=== PATIENT | female | born 1970 | race Caucasian/White ===

== ENCOUNTER 2020-10-18 22:39 | Emergency (ER) | payer BC, OTHER ==
[~2020-10-18 22:39] MED LIST: FLAGYL500 MG PO; NEURONTIN100 MG PO; NORCO 5-325 TA1 EACH PO
[2020-10-19 00:18] LABS: HEMOGLOBIN 14.5 gm/dl (12.3-15.3); RED BLOOD COUNT 4.68 M/UL (4.00-5.10); WHITE BLOOD COUNT 15.1 K/UL (4.5-11.0)
[2020-10-19 00:36] LABS: BUN/CREATININE RATIO 17 (0-10)
== END 2020-10-19 02:38 | disposition home or self-care (01) ==
LOC: ER1 22:39
PROVIDERS: Family Medicine
DX: R51.9 Headache, unspecified (principal); E11.65 Type 2 diabetes mellitus with hyperglycemia; D69.6 Thrombocytopenia, unspecified; F17.200 Nicotine dependence, unspecified, uncomplicated; R93.0 Abnormal findings on diagnostic imaging of skull and head, not elsewhere classified; Z90.49 Acquired absence of other specified parts of digestive tract; Z90.89 Acquired absence of other organs; Z86.16 Personal history of COVID-19
CPT/HCPCS: 70450; 80053; 85025; 93005; 96374; 96375; 99284; J1100; J1200; J1885; J2765; J7030

== ENCOUNTER → 2020-10-19 | Outpatient (CLI) | payer BC, OTHER ==
[2020-10-19 16:56] LABS: HEMOGLOBIN 14.9 gm/dl (12.3-15.3); RED BLOOD COUNT 4.81 M/UL (4.00-5.10); WHITE BLOOD COUNT 16.6 K/UL (4.5-11.0)
[2020-10-19 17:43] LABS: BUN/CREATININE RATIO 21 (0-10)
[2020-10-21 08:10] LABS: VITAMIN D, 25-HYDROXY 17.6 ng/mL (30.0-100.0)
[2020-10-22 15:11] LABS: THYROGLOBULIN ANTIBODY <1.0 IU/mL (0.0-0.9); THYROID PEROXIDASE (TPO) AB 17 IU/mL (0-34)
[2020-10-22 16:11] LABS: ATYPICAL PANCA <1:20 titer (Neg:<1:20); CYTOPLASMIC (C-ANCA) <1:20 titer (Neg:<1:20); PERINUCLEAR (P-ANCA) <1:20 titer (Neg:<1:20)
== END ==
LOC: LAB 14:14
PROVIDERS: Nurse Practitioner Family
DX: I77.6 Arteritis, unspecified (principal); G43.911 Migraine, unspecified, intractable, with status migrainosus; E78.5 Hyperlipidemia, unspecified; R53.83 Other fatigue; E55.9 Vitamin D deficiency, unspecified
CPT/HCPCS: 80053; 80061; 82607; 82746; 84443; 85027; 85652; 86038; 86140; 86256; 86376; 86800

== ENCOUNTER → 2020-10-26 | Outpatient (CLI) | payer BC, OTHER | LOC: EMI 10:30 | DX: I77.6 Arteritis, unspecified (principal); R90.89 Other abnormal findings on diagnostic imaging of central nervous system | CPT/HCPCS: 70544; 70551 ==

== ENCOUNTER 2021-07-04 21:23 | Emergency (ER) | payer BC ==
[2021-07-04 23:10] LABS: HEMOGLOBIN 15.8 gm/dl (12.3-15.3); RED BLOOD COUNT 5.28 M/UL (4.00-5.10); WHITE BLOOD COUNT 14.4 K/UL (4.5-11.0)
[2021-07-04 23:19] LABS: BUN/CREATININE RATIO 21 (0-10)
[2021-07-05] MEDS ORDERED: OMNICEF 300 MG300 MG PO (01:21)
== END 2021-07-05 01:40 | disposition home or self-care (01) ==
LOC: ER1 21:23
PROVIDERS: Physician Assistant
DX: R55 Syncope and collapse (principal); N39.0 Urinary tract infection, site not specified; S09.90XA Unspecified injury of head, initial encounter; E11.9 Type 2 diabetes mellitus without complications; F17.200 Nicotine dependence, unspecified, uncomplicated; E78.5 Hyperlipidemia, unspecified; Z86.16 Personal history of COVID-19; Z88.1 Allergy status to other antibiotic agents; Z88.5 Allergy status to narcotic agent; W01.10XA Fall on same level from slipping, tripping and stumbling with subsequent striking against unspecified object, initial encounter
CPT/HCPCS: 70450; 72125; 80053; 81001; 82550; 82553; 83874; 84484; 85025; 93005; 99284